=== PATIENT | female | born 1975 | race African-American/Black ===

== ENCOUNTER 2017-02-01 16:41 | Observation (INO) | payer MEDICAID ==
[~2017-02-01] VITALS: Ht 165.1 cm; Wt 123.4 kg
[~2017-02-01 16:41] MED LIST: IRONTAB35 OR; PRENTAB76 PO
[2017-02-01] MEDS ORDERED: SODIUM CHLORIDE 0.9% 1,000 ML IV ONE (17:13)
[2017-02-01] MEDS ORDERED: MECLIZINE HCL 25 MG TAB PO ONE (17:15)
[2017-02-01 17:28] LABS: Basophils # (auto) 0 uL; DEFINITIVE VIEW TRANSMISSION; Eosinophils # (auto) 0.2 uL; Eosinophils % (auto) 2.2 % (0.0-7.0); Hematocrit 27.1 % (36.0-46.0); Lymphocytes % (auto) 36.4 % (10.0-50.0); Mean Corpuscular Hemoglobin 17.7 pg (28.0-32.0); Mean Corpuscular Hgb Conc. 29.6 g/dL (32.0-36.0); Mean Corpuscular Volume 59.8 fL (80.0-100.0); Mean Platelet Volume 8.2 fL (7.4-10.4); Monocytes # (auto) 0.6 uL; Monocytes % (auto) 6.9 % (0.0-12.0); Neutrophils # (auto) 4.4 uL; Neutrophils % (auto) 54.5 % (37.0-80.0); Platelet Count (auto) 373 10^3/uL (140-450); White Blood Cell 8.1 10^3/uL (4.4-10.8)
[2017-02-01 17:31] LABS: Red Cell Distribution Width 20.7 % (11.6-16.0)
[2017-02-01 17:32] LABS: BUN/Creatinine Ratio 13.3; Calcium 8.3 mg/dL (8.5-10.1); Potassium 3.8 mmol/L (3.5-5.1)
[2017-02-01 17:38] LABS: Bilirubin, Total 0.2 mg/dL (0.2-1.0); Total Protein 7.3 g/dL (6.4-8.2)
[2017-02-01 18:14] LABS: Magnesium 2.3 mg/dL (1.6-2.6)
[2017-02-01 18:22] LABS: Anisocytosis Moderate; Platelet Estimate Adequate
[2017-02-01 18:23] LABS: Giant Platelets Few; Hypochromia Moderate; Large Platelets FEW; Microcytosis Moderate; Ovalocytes FEW
[2017-02-01] MEDS ORDERED: ACETAMINOPHEN 500 MG TAB PO ONE (19:00)
[2017-02-01 20:28] VITALS: BP 125/60
[2017-02-01 21:05] LABS: Urine Bilirubin Negative (Negative); Urine Blood Negative /uL (Negative); Urine Color Yellow (Yellow); Urine Glucose Normal (Normal); Urine Ketone Negative (Negative); Urine Nitrite Negative (Negative); Urine RBC <1 /hpf (0 - 4); Urine Squamous Epithelial Cell FEW /hpf (<5); Urine Urobilinogen Normal (Negative)
== END 2017-02-01 21:50 | disposition home or self-care (01) | DRG 111 ==
LOC: ER 16:41 → OVERFLOW 17:16 → ER 21:50
PROVIDERS: ADMIT Emergency Medicine; ATTEND Emergency Medicine
DX: H83.09 Labyrinthitis, unspecified ear (principal); E66.01 Morbid (severe) obesity due to excess calories; Z98.84 Bariatric surgery status; K95.89 Other complications of other bariatric procedure; Y83.2 Surgical operation with anastomosis, bypass or graft as the cause of abnormal reaction of the patient, or of later complication, without mention of misadventure at the time of the procedure; D50.9 Iron deficiency anemia, unspecified; J45.909 Unspecified asthma, uncomplicated
CPT/HCPCS: 36415; 70450; 71020; 80053; 80320; 81001; 83735; 84443; 85025; 93005; 96360; 96361; 99285; G0378; J7030; J8597

== ENCOUNTER 2018-01-05 09:04 | Emergency (ER) | payer MEDICAID ==
[~2018-01-05] VITALS: Ht 165.1 cm; Wt 126.1 kg
[2018-01-05 09:30] LABS: Basophils # (auto) 0 uL; Eosinophils # (auto) 0.1 uL; Mean Corpuscular Volume 59.5 fL (80.0-100.0); Neutrophils # (auto) 3.6 uL; White Blood Cell 7.4 10^3/uL (4.4-10.8)
[2018-01-05 09:31] LABS: Basophils % (auto) 0.2 % (0.0-2.0); Eosinophils % (auto) 1.6 % (0.0-7.0); Hematocrit 26.9 % (36.0-46.0); Hemoglobin 7.7 g/dL (12.2-16.2); Lymphocytes # (auto) 3.2 uL; Lymphocytes % (auto) 43.6 % (10.0-50.0); Mean Corpuscular Hgb Conc. 28.6 g/dL (32.0-36.0); Monocytes # (auto) 0.5 uL; Monocytes % (auto) 6.1 % (0.0-12.0); Neutrophils % (auto) 48.5 % (37.0-80.0); Nucleated Red Blood Cells % 0.1 %; Platelet Count (auto) 417 10^3/uL (140-450); Red Blood Cells 4.53 10^6/uL (4.0-5.20)
[2018-01-05 09:34] LABS: Urine Bacteria FEW /hpf (None Seen); Urine Blood 3+ /uL (Negative); Urine Mucus FEW (None Seen); Urine Specific Gravity 1.015 (1.001-1.035); Urine WBC 24 /hpf (0 - 5)
[2018-01-05 09:41] LABS: Red Cell Distribution Width 20.1 % (11.8-14.3)
[2018-01-05 09:59] LABS: Albumin 3.4 g/dL (3.4-5.0); BUN/Creatinine Ratio 9.9; Bilirubin, Total 0.1 mg/dL (0.2-1.0); Calcium 8.4 mg/dL (8.5-10.1); Total Protein 7.7 g/dL (6.4-8.2)
[2018-01-05 11:07] VITALS: BP 123/77
[2018-01-05] MEDS ORDERED: medroxyPROGESTERone ACETATE 5 MG TAB PO ONE (11:15)
== END 2018-01-05 14:12 | disposition home or self-care (01) ==
LOC: ER 09:04
DX: N93.9 Abnormal uterine and vaginal bleeding, unspecified (principal); N39.0 Urinary tract infection, site not specified; E66.01 Morbid (severe) obesity due to excess calories; N92.1 Excessive and frequent menstruation with irregular cycle; Z68.42 Body mass index [BMI] 45.0-49.9, adult
CPT/HCPCS: 36415; 80053; 81001; 85025